=== PATIENT | male | born 1940 | race Caucasian/White ===

== ENCOUNTER 2016-07-24 09:52 | Day surgery (SDC) | payer BC ==
[~2016-07-24] VITALS: Ht 182.9 cm; Wt 81.7 kg
[~2016-07-24 09:52] MED LIST: LATANOPROST2.5 ML BOTH EYES; LO-DOSE ASPIRIN81 M2 PO
[2016-07-24] MEDS ORDERED: XYZAL5 MG BC (10:46)
[2016-07-24 10:53] VITALS: BP 162/81
[2016-07-24 11:40] LABS: HEMATOCRIT 44.2 % (38.0-50.0); MCH 29.9 PG (29.0-34.0); MCHC 33.3 G/DL (30.0-36.0); MCV 89.8 FL (86-99); MEAN PLAT.VOLUME 8.6 uM^3 (9.0-12.4); PLATELET COUNT 220 K/uL (156-360); RBC DIS.WIDTH-CV 12.5 % (11.8-14.6); RBC DIS.WIDTH-SD 41.2 % (39-53); RED BLOOD COUNT 4.92 M/uL (4.00-5.50); WHITE BLOOD COUNT 5.1 K/uL (4.1-10.2)
[2016-07-24 12:04] LABS: METH RESISTANT S AUREUS PCR NEGATIVE (NEGATIVE)
[2016-07-24 12:07] LABS: PROBE CHECK PASS; SPECIMEN PROCESSING CONTROL PASS
[2016-07-24 12:25] LABS: ALKALINE PHOSPHATASE 50 IU/L (3-129); ANION GAP 7 MEQ/L (2-14); CHLORIDE 104 MEQ/L (99-109); GFR ESTIMATE (CALCULATED) > 59 mL/min/; GLUCOSE 97 mg/dL (70-99); POTASSIUM 4.6 MEQ/L (3.7-5.4); SAMPLE HEMOLYSIS CHECK 0; SAMPLE ICTERIC CHECK 0; SAMPLE LIPEMIA CHECK 0; SODIUM 138 MEQ/L (136-147); TOTAL BILIRUBIN 0.7 MG/DL (0.0-1.0); UREA NITROGEN (BUN) 14 mg/dL (9-23)
[2016-07-24 14:41] VITALS: BP 134/70
[2016-07-24 15:28] VITALS: BP 142/79
== END 2016-07-24 15:43 | disposition home or self-care (01) ==
LOC: SDC 09:52
PROVIDERS: Ophthalmology
DX: H33.002 Unspecified retinal detachment with retinal break, left eye (principal); Z79.82 Long term (current) use of aspirin
CPT/HCPCS: 80053; 85027; 87641; 93005; J0690; J1100; J2795; J3300